=== PATIENT | male | born 1990 | race Caucasian/White ===

== ENCOUNTER 2020-08-14 11:18 | Emergency (ER) | payer MEDICAID ==
[~2020-08-14] VITALS: Ht 162.6 cm; Wt 8.4 kg
[2020-08-14] MEDS ORDERED: METF-960 PO (11:30)
[2020-08-14] MEDS ORDERED: IBUPROFEN 800 MG TABLET PO ONE (12:15)
[2020-08-14 13:20] VITALS: BP 145/88
== END 2020-08-14 13:46 | disposition home or self-care (01) ==
LOC: EMS 11:20
DX: S09.90XA Unspecified injury of head, initial encounter (principal); H93.13 Tinnitus, bilateral; M54.5 Low back pain; E11.9 Type 2 diabetes mellitus without complications; V79.9XXA Bus occupant (driver) (passenger) injured in unspecified traffic accident, initial encounter; Y93.89 Activity, other specified; Y92.488 Other paved roadways as the place of occurrence of the external cause; Y99.8 Other external cause status
CPT/HCPCS: 70450; 72100